=== PATIENT | female | born 1995 | race Caucasian/White ===

== ENCOUNTER → 2020-05-02 | Outpatient (CLI) | payer OTHER ==
[~2020-05-02] MED LIST: CIPRO500 MG PO; COLACE 100MG C100 MG PO; FLEXERIL 10 MG10 MG PO; FLOMAX0.4 MG PO; MACROBID 100 M100 MG PO; NORCO 5-325 TA1 EACH PO; OMNICEF 300 MG300 MG PO; PERCOCET 5-3251 EACH PO; PERCOCET 5/325 T1 EA PO; PRENATAL VITAM1 EAC5 PO; TORADOL 10 MG T10 MG PO; ZOFRAN4 MG PO
[2020-05-03 16:13] LABS: ENDOMYSIAL ANTIBODY IGA Negative (Negative); IMMUNOGLOBULIN A, QN, SERUM 133 mg/dL (87-352); T-TRANSGLUTAMINASE (TTG) IGA <2 U/mL (0-3); T-TRANSGLUTAMINASE (TTG) IGG <2 U/mL (0-5)
== END ==
LOC: CT 13:12
PROVIDERS: Physician Assistant Surgical
DX: R19.7 Diarrhea, unspecified (principal); R10.32 Left lower quadrant pain; R11.0 Nausea
CPT/HCPCS: 36415; 82784; Q9967

== ENCOUNTER 2021-07-16 10:40 | Emergency (ER) | payer OTHER ==
[2021-07-16 11:47] LABS: HEMOGLOBIN 14.1 gm/dl (12.3-15.3); RED BLOOD COUNT 4.67 M/UL (4.00-5.10); WHITE BLOOD COUNT 6.8 K/UL (4.5-11.0)
[2021-07-16 12:12] LABS: BUN/CREATININE RATIO 12 (0-10)
== END 2021-07-16 14:38 | disposition home or self-care (01) ==
LOC: ER1 10:40
PROVIDERS: Physician Assistant
DX: R10.9 Unspecified abdominal pain (principal); R10.813 Right lower quadrant abdominal tenderness; R11.2 Nausea with vomiting, unspecified; F17.200 Nicotine dependence, unspecified, uncomplicated; Z87.442 Personal history of urinary calculi
CPT/HCPCS: 80053; 81001; 84703; 85025; 87086; 96374; 96375; 99284; J1885; J2405

== ENCOUNTER 2021-08-28 13:54 | Emergency (ER) | payer OTHER ==
[2021-08-28 14:23] LABS: HEMOGLOBIN 13.6 gm/dl (12.3-15.3); RED BLOOD COUNT 4.51 M/UL (4.00-5.10); WHITE BLOOD COUNT 7.3 K/UL (4.5-11.0)
[2021-08-28 14:51] LABS: BUN/CREATININE RATIO 10 (0-10)
[2021-08-28] MEDS ORDERED: ZOFRAN ODT 4 MG4 MG SL (17:01)
[2021-08-28] MEDS ORDERED: TORADOL 10 MG T10 MG PO (17:01)
[2021-08-28] MEDS ORDERED: HYDROCODON-ACE1 EAC4 PO (17:01)
[2021-08-28] MEDS ORDERED: FLOMAX0.4 MG PO (17:01)
== END 2021-08-28 17:20 | disposition home or self-care (01) ==
LOC: ER1 13:54
PROVIDERS: Physician Assistant
DX: N13.2 Hydronephrosis with renal and ureteral calculous obstruction (principal); F17.290 Nicotine dependence, other tobacco product, uncomplicated; Z87.442 Personal history of urinary calculi; Z88.2 Allergy status to sulfonamides
CPT/HCPCS: 80053; 81001; 84703; 85025; 96374; 96375; 99284; J1885; J2270; J2405; J7030